=== PATIENT | male | born 1980 | race Caucasian/White ===

== ENCOUNTER 2022-08-15 19:56 | Emergency (ER) | payer BC, SELFPAY ==
[2022-08-15 20:00] VITALS: BP 192/94; PULSE 72; RESP 18; TEMP 35.8; O2SAT 99; BMI 31.6
--- NOTE | 2022-08-15 20:08 | CRLHL7_ITS ---
For Patients: As a result of the Century Cures Act, medical imaging exams and procedure reports are released immediately into your electronic medical record. You may view this report before your referring provider. If you have questions, please contact your health care provider. HISTORY: Left flank/abdominal pain. TECHNIQUE: CT abdomen and pelvis without contrast. COMPARISON: None. FINDINGS: Urinary tract: 4 mm calculus at the left ureterovesical junction (axial series 2, image 138). Mild left hydronephrosis. Fat stranding around the left ureter and kidney. Nonobstructing 6 mm calculus in the lower pole the right kidney. No right ureteral calculi. No hydronephrosis on the right. Abdomen: Liver is unremarkable. Cholelithiasis. Pancreas, spleen, and adrenal glands are unremarkable. No dilated bowel. Appendix is unremarkable. No free fluid. No lymphadenopathy. Abdominal aorta is not dilated. Pelvis: No lymphadenopathy. Musculoskeletal: Multilevel degenerative changes in the thoracic and lumbar spine. Bilateral sacroiliac joint degenerative changes. Lower chest: Unremarkable. IMPRESSION: 1. 4 mm calculus at the left ureterovesical junction. Mild left hydronephrosis. 2. Nonobstructing right renal calculus. 3. Cholelithiasis. Please note that all CT scans at this facility use dose modulation, iterative reconstruction, and/or weight-based dosing when appropriate to reduce radiation dose to as low as reasonably achievable. Dictated by Bhavin Franco MD @ 08/15/2022 9:20:46 PM (Electronically Signed)
--- NOTE | 2022-08-15 20:09 | ED_ITS ---
HPI - General Adult General Chief complaint: Flank Pain Stated complaint: Extreme Abdominal Pain, Left Flank to Front Time Seen by Provider: 08/15/22 20:11 History of Present Illness HPI narrative: This 42-year-old male comes in with a left-sided abdominal pain radiating down some into his groin. This started a couple hours prior to arrival. He is pacing in the room in severe discomfort. He does not have any personal history of kidney stone but states that his father has passed a kidney stone. Prior to this he has been in good health. Related Data Home Medications Medication Instructions Recorded Confirmed ibuprofen 08/15/22 Allergies Allergy/AdvReac Type Severity Reaction Status Date / Time tetracycline Allergy Anaphylaxis Verified 08/15/22 20:03 Review of Systems Status of ROS: Reports: 10 or more systems reviewed and unremarkable except as noted in History and below Narrative: Constitutional: No fevers, no weight gain or loss. Eyes: No discharge. No vision changes. HENT: No congestion, no sore throat, no ear pain. Cardiovascular: No chest pain, no palpitations. Respiratory: No shortness of breath, no wheezes, no cough. Gastrointestinal: No diarrhea. Left-sided abdominal pain and flank pain. Genitourinary: No dysuria, no hematuria. Musculoskeletal: Normal range of motion. Skin: No rashes, no pruritis. Neurological: No dizziness, weakness, sensory change, speech change. Endo/Heme/Allergies: No bruising or bleeding. No polydipsia. Pysch: no suicidality, no anxiety, no insomnia. All other systems reviewed and are negative. Exam Narrative: Exam Narrative: Constitutional: Well-developed, well-nourished, no acute distress. HEENT: Normocephalic, atraumatic. Neck: Normal range of motion. Nontender. Supple. Heart: Regular. No murmurs. Normal rate. Intact distal pulses. Lungs: Clear to auscultation. No chest discomfort. No wheezes, rhonchi, or rales. Abdomen: Normal bowel sounds. Left abdomen pain radiating down into the left groin. No rebound tenderness. Genitalia: Deferred. Back: No midline tenderness. Normal range of motion. Extremities: Normal range of motion. No injury. Skin: Intact. No rash. Warm. No erythema or pallor. Neurologic: No altered sensation. No weakness. Alert and oriented. Psychiatric: No suicidality. No anxiety or depression. No insomnia. Nursing notes and vitals signs are reviewed. Const: Vital Signs, click to edit/add: Vital Signs - 24 hr 08/15/22 20:00 Temperature 96.5 F L Pulse Rate [Left P ulse Oximeter] 72 Respiratory Rate 18 Blood Pressure [Ri ght Upper Arm] 192/94 H Pulse Oximetry 99 Oxygen Delivery Me thod Room Air Course Vital Signs Vital signs: Initial Vital Signs Temperature 96.5 F L 08/15/22 20:00 Temperature Source Temporal Artery Scan 08/15/22 20:00 Pulse Rate 72 08/15/22 20:00 Respiratory Rate 18 08/15/22 20:00 Blood Pressure 192/94 H 08/15/22 20:00 Blood Pressure Mean 126 08/15/22 20:00 Blood Pressure Position Standing 08/15/22 20:00 Pulse Oximetry 99 08/15/22 20:00 Oxygen Delivery Method 08/15/22 20:00 Vital Signs Temperature 96.5 F L 08/15/22 20:00 Pulse Rate 72 08/15/22 20:00 Respiratory Rate 18 08/15/22 20:00 Blood Pressure 192/94 H 08/15/22 20:00 Pulse Oximetry 99 08/15/22 20:00 Oxygen Delivery Method 08/15/22 20:00 Temperature 96.5 F L 08/15/22 20:00 Pulse Rate 72 08/15/22 20:00 Respiratory Rate 18 08/15/22 20:00 Blood Pressure 192/94 H 08/15/22 20:00 Pulse Oximetry 99 08/15/22 20:00 Oxygen Delivery Method 08/15/22 20:00 Medical Decision Making MDM Narrative Medical decision making narrative: This patient presents with symptoms typical of a kidney stone being passed. An IV was established where he received Toradol 30 mg, Dilaudid 0.5 mg, and Zofran [address] scan of the abdomen and pelvis is ordered and returns showing a stone at the left ureterovesical junction. By my assessment it appears to be around 3-4 mm in size. Radiology report is pending. Urinalysis shows microscopic hematuria and no sign of infection. The patient's symptoms were sufficiently managed with these medications. Toward the end of his visit he did receive another dose of Dilaudid. Prescriptions for Toradol, oxycodone, and Zofran are provided. Lab Data Labs: Lab Results 08/15/22 08/15/22 08/15/22 Range/Units 20:20 20:20 20:20 WBC 15.45 H (4.50-11.00) K/uL RBC 5.08 (4.30-5.90) m/uL Hgb 14.9 (13.5-17.5) gm/dL Hct 43.9 (37.0-53.0) % MCV 86 (80-100) fL MCH 29 (26-34) pg MCHC 34 (32-36) gm/dL RDW Coeff of Gene 12.5 (11.5-15.5) % Plt Count 342 (140-440) K/uL Neut % (Auto) 80.9 H (42.0-72.0) % Lymph % (Auto) 12.1 L (20-44) % [place] % (Auto) 5.4 (0.0-11.0) % Eos % (Auto) 1.2 (0.0-7.0) % Baso % (Auto) 0.3 (0.0-3.0) % Neut # (Auto) 12.50 H (1.7-7.0) K/uL Lymph # (Auto) 1.90 (0.90-2.90) K/uL [place] # (Auto) 0.80 (0.00-0.90) K/UL Eos # (Auto) 0.20 (0.00-0.50) K/uL Baso # (Auto) 0.00 (0.00-0.30) K/uL Sodium 138 (135-149) mmol/L Potassium 4.2 (3.6-5.1) mmol/L Chloride 107 (96-114) mmol/L Carbon Dioxide 20 (20-32) mmol/L BUN 18 (5-24) mg/dL Creatinine 1.2 (0.5-1.5) mg/dL Estimated Creat Clear 81.96 Estimated GFR 77 ml/min Glucose 158 H (60-115) mg/dL Calcium 9.1 (8.4-10.6) mg/dL Urine Color Yellow (Yellow) Urine Appearance Clear (Clear) Urine pH 5.5 (5.0-8.5) Ur Specific [place] >= 1.030 (1.000-1.030) Urine Protein Negative (Negative) Urine Glucose (UA) Negative (Negative) Urine Ketones Trace A (Negative) Urine Blood 2+ A (Negative) Urine Nitrite Negative (Negative) Urine Bilirubin Negative (Negative) Urine Urobilinogen 0.2 (0.2-1.0) Ur Leukocyte Esterase Negative (Negative) Urine RBC 2-5 A (0-2) Urine WBC 0-2 (0-5) Ur Squamous Epith Cells None (None-Few) Urine Bacteria None (None) Discharge Plan Discharge Clinical Impression: Calculus, ureteral Patient Disposition: Home w/ Parent or Adult Condition: Stable Additional Instructions: Take medication as needed and indicated. Follow up with MD or return if symptoms are persistent or worsening. Prescriptions: No Action ibuprofen Follow Up/Referrals: Bandar Herron MD [Primary Care Provider] - Stand Alone Forms: [employer] Info Instructions
[2022-08-15] MEDS: KETOROLAC 30 MG/ML inj IVP (20:27)
[2022-08-15] MEDS: ONDANSETRON 2 MG/ML inj 4 MG IVP (20:27)
[2022-08-15 20:30] LABS: Basophils Percent Auto 0.3 % (0.0-3.0); Eosinophils Percent Auto 1.2 % (0.0-7.0); Hematocrit 43.9 % (37.0-53.0); Hemoglobin* 14.9 gm/dL (13.5-17.5); Immature Granulocytes Pct Auto 0.1 %; Lymphocytes Percent Auto 12.1 % (20-44); Mean Corpuscular HGB Conc 34 gm/dL (32-36); Mean Corpuscular Hemoglobin 29 pg (26-34); Mean Corpuscular Volume 86 fL (80-100); Monocytes Percent Auto 5.4 % (0.0-11.0); Neutrophils Percent Auto 80.9 % (42.0-72.0); Platelet Count* 342 K/uL (140-440); RDW Coefficient of Variation % 12.5 % (11.5-15.5); Red Blood Count 5.08 m/uL (4.30-5.90); White Blood Count* 15.45 K/uL (4.50-11.00)
[2022-08-15 20:33] LABS: Appearance Urine Clear (Clear); Bilirubin Urine Negative (Negative); Blood Urine 2+ (Negative); Color Urine Yellow (Yellow); Glucose Urine Negative (Negative); Ketones Urine Trace (Negative); Leukocyte Esterase Urine Negative (Negative); Nitrite Urine Negative (Negative); Protein Urine Negative (Negative); Specific Gravity Urine >= 1.030 (1.000-1.030); Urobilinogen Urine 0.2 (0.2-1.0); pH Urine 5.5 (5.0-8.5)
[2022-08-15 20:36] LABS: Slide Review Reflex No
[2022-08-15 20:45] LABS: Chloride* 107 mmol/L (96-114); Potassium* 4.2 mmol/L (3.6-5.1); Sodium* 138 mmol/L (135-149)
[2022-08-15 20:48] LABS: Blood Urea Nitrogen* 18 mg/dL (5-24); Carbon Dioxide* 20 mmol/L (20-32); Creatinine* 1.2 mg/dL (0.5-1.5); Est. Creatinine Clearance* 81.96; Estimated Glomerular Filt Rate 77 ml/min; Glucose* 158 mg/dL (60-115)
[2022-08-15 20:49] LABS: Calcium* 9.1 mg/dL (8.4-10.6)
[2022-08-15 21:09] LABS: WBC Urine 0-2 (0-5)
[2022-08-15] MEDS: HYDROmorphone 0.5 mg/0.5 ml inj IVP (21:27)
[2022-08-15 21:49] VITALS: PULSE 54; RESP 16
== END 2022-08-15 21:49 | disposition home or self-care (01) ==
PROVIDERS: Emergency Provider Emergency Medicine Emergency Medical Services; PCP Family Medicine
DX: N20.1 Calculus of ureter (principal)
CPT/HCPCS: 36415; 74176; 80048; 81001; 85025; 96374; 96375; 99284; J1170; J1885; J2405

== ENCOUNTER 2023-06-25 11:31 | Emergency (ER) | payer BC, SELFPAY ==
[2023-06-25 11:34] VITALS: BP 129/58; PULSE 77; RESP 18; TEMP 37.7; O2SAT 100; BMI 27.3
--- NOTE | 2023-06-25 11:39 | ED.GENADULT ---
HPI - General Adult General Chief complaint: Headache/Migraine Stated complaint: Loss of vision, headache Time Seen by Provider: 06/25/23 11:38 History of Present Illness HPI narrative: seen by eye doctor yesterday for vision loss x 2 days. exam was normal, was referred to ED today. c/o headache when he coughs. 43-year-old man presenting to the emergency department concern of visual loss. Was contacted by primary care provider who had been contacted by Ophthalmology noting a left-sided visual field loss. This was on exam yesterday I understand. He has a severe left-sided headache particularly when he coughs. No discoordination. No trauma. Has been having some cough and a couple of days ago during a coughing jag at work suddenly had onset of this loss of vision. In later conversation he has been also experiencing over the last couple of weeks, flashes of light in this same area of visual loss. No peripheral loss of sensation or weakness. Does not smoke but has used nicotine in other forms. No chest pain. No shortness of breath. Has been struggling otherwise over the last few months with symptoms related to thyroid disease and currently taking methimazole. Works in [employer] business in [employer]. Sounds like he takes great care and pride in his work. Related Data Home Medications Medication Instructions Recorded Confirmed ibuprofen 08/15/22 methimazole 5 mg tablet 5 mg PO DAILY 06/25/23 06/25/23 metoprolol succinate 25 mg 25 mg PO QPM 06/25/23 06/25/23 tablet,extended release 24 hr omeprazole 20 mg capsule,delayed 20 mg PO DAILY 06/25/23 06/25/23 release Previous Rx's Medication Instructions Recorded aspirin 81 mg tablet,delayed 81 mg PO DAILY #30 tabs 06/25/23 release (Adult Aspirin Regimen) Allergies Allergy/AdvReac Type Severity Reaction Status Date / Time tetracycline Allergy Anaphylaxis Verified 08/15/22 20:03 Review of Systems Status of ROS: Reports: 6 or more systems reviewed and unremarkable except as noted in History and below PFSH PFS Social History Smoking Status: Smoker, status unknown Exam Narrative: Exam Narrative: Pleasant. NAD though winces a little bit intermittently with apparent headache. Moving all extremities without difficulty as well perfused with good strength throughout. No apparent sensory losses. Neck is supple with strong and equal carotid upstroke. Breathing easily lungs appear to be clear. Heart is in a regular rate and rhythm. Cranial nerves 2-12 look to be intact with full ocular movements. There is however demonstrable loss of lateral visual field in the left eye to confrontation. Funduscopic exam looks to have healthy vasculature. Const: Vital Signs, click to edit/add: Vital Signs - 24 hr 06/25/23 11:34 06/25/23 16:07 Temperature 99.9 F H Pulse Rate [Right Pulse Oximeter] 77 88 Respiratory Rate 18 18 Blood Pressure [Ri ght Upper Arm] 129/58 L 125/68 Pulse Oximetry 100 Oxygen Delivery Me thod Room Air Documenting provider has reviewed patient's vital signs: yes Course Vital Signs Vital signs: Initial Vital Signs Temperature 99.9 F H 06/25/23 11:34 Temperature Source Temporal Artery Scan 06/25/23 11:34 Pulse Rate 77 06/25/23 11:34 Respiratory Rate 18 06/25/23 11:34 Blood Pressure 129/58 L 06/25/23 11:34 Blood Pressure Mean 81 06/25/23 11:34 Blood Pressure Position Sitting 06/25/23 11:34 Pulse Oximetry 100 06/25/23 11:34 Oxygen Delivery Method Room Air 06/25/23 11:34 Vital Signs Temperature 99.9 F H 06/25/23 11:34 Pulse Rate 77 06/25/23 11:34 Respiratory Rate 18 06/25/23 11:34 Blood Pressure 129/58 L 06/25/23 11:34 Pulse Oximetry 100 06/25/23 11:34 Oxygen Delivery Method Room Air 06/25/23 11:34 Temperature 99.9 F H 06/25/23 11:34 Pulse Rate 88 06/25/23 16:07 Respiratory Rate 18 06/25/23 16:07 Blood Pressure 125/68 06/25/23 16:07 Pulse Oximetry 100 06/25/23 11:34 Oxygen Delivery Method Room Air 06/25/23 11:34 Medications Administered Medications: Discontinued Medications Generic Name Dose Route Start Last Admin Trade Name Freq PRN Reason Stop Dose Admin Aspirin 325 mg 06/25/23 15:19 06/25/23 15:26 Aspirin Ec 325 Mg Tablet PO 06/25/23 15:20 325 mg DAILY ONE Administration Sodium Chloride 1,000 mls @ 1,000 mls/hr 06/25/23 13:41 06/25/23 15:26 0.9 % Sodium Chloride 1000 Ml IV 06/25/23 14:40 1,000 mls/hr .Q1H ONE Administration Medical Decision Making MDM Narrative Medical decision making narrative: Has already had ophthalmology exam that is noting that there is concern of injury deeper than the eye itself. One would have concern about ischemic event. Evaluate for arrhythmia/dysrhythmia this potential etiology and I am anticipating as it is daytime hours and I am able to get an MRI likely doing a brain MRI and proceeding from there for further evaluation. Discussed this case with Stroke Neuro and they concur with initial evaluation. EKG shows normal sinus rhythm. MRI of the brain-I did review images however radiology over-read as below IMPRESSION: 1. 34 millimeter region of dominant late acute or early subacute infarction within the right medial occipital lobe, with several smaller recent infarcts along the margins. No DWI/FLAIR mismatch. This infarct involves the right [employer] territory. Small amount of petechial hemorrhage or localized thrombus within the deep portion of the infarct bed. No acute parenchymal hemorrhage. 2. No acute ischemia in other vascular territories. Discussed follow-up vascular study with Stroke Neuro and feel that contrasted CT imaging should provide good study. Given L of normal saline IV. Labs with elevated inflammatory markers in particular. ProBNP also elevated at a little over 1000 of unclear significance. CLINICAL HISTORY: Right occipital stroke. TECHNIQUE: CTA neck with contrast bolus tracking. 3D angiographic rendering using maximum intensity projection (MIP) and images permanently archived. COMPARISON: None available. FINDINGS: The great vessels are patent. The common carotid arteries are patent. The proximal ICAs are patent without signficant stenoses by NASCET criteria. The more distal cervical ICAs are patent. The origins of the vertebral arteries are patent. The cervical segments of the vertebral arteries are patent. IMPRESSION: Patent cervical arterial vasculature without hemodynamically significant luminal stenosis. Head -- IMPRESSION: No intracranial proximal large vessel occlusion, flow-limiting luminal stenosis, or cerebral aneurysm. Is recommended for aspirin load and then continuing daily low-dose aspirin. Would monitor also for cardiac arrhythmia over a longer period of time. I wonder if etiology to this CVA is inflammatory condition present in the body with thyroid dysfunction, which is currently being remedied/treated. Case discussed with Mr. Almendarez, his and primary care provider in a conference call. Lab Data Lab results reviewed: Yes I reviewed the patient's lab results Labs: Lab Results 06/25/23 Range/Units 14:00 ESR 32 H (2-15) mm/hr INR 1.18 H (0.91-1.10) APTT 36 H (23-33) Seconds Sodium 132 L (135-149) mmol/L Potassium 4.2 (3.6-5.1) mmol/L Chloride 101 (96-114) mmol/L Carbon Dioxide 24 (20-32) mmol/L Anion Gap 7 (7-15) mEq/L BUN 10 (5-24) mg/dL Creatinine 1.0 (0.5-1.5) mg/dL Estimated Creat Clear 97.33 Estimated GFR 95 ml/min Glucose 121 H (60-115) mg/dL Calcium 8.8 (8.4-10.6) mg/dL C-Reactive Protein 6.0 H (0.5-1.0) mg/dL NT-Pro-B Natriuret Pep 1070 pg/mL ECG Data Attestation: I personally reviewed and interpreted this ECG as follows: (Normal sinus rhythm rate of 77 without acute ischemic changes) Discharge Plan Discharge Clinical Impression: Headache, Occipital stroke Patient Disposition: Home w/ Parent or Adult Condition: Stable Additional Instructions: Please contact [facility] (unless you have another neurologist you would like to consult with) to arrange follow-up appointment. Take copies of your imaging over-read and disc to follow-up appointments. Please contact your Primary Care to arrange a Daniella Patch as soon as possible and wear for 3-4 weeks. This result is then reviewed by cardiology. Would anticipate primary care also arranging for a cardiac echocardiogram; likely trans esophageal. Continue to take 81 mg of aspirin daily. Be re-evaluated for new and focal weakness, worsening deficits, worsening/severe headache. I suppose it is not as though you can not work but would take it a little easy over this next week. Prescriptions: New aspirin [Adult Aspirin Regimen] 81 mg tablet,delayed release (DR/EC) 81 mg PO DAILY Qty: 30 0RF No Action ibuprofen methimazole 5 mg tablet 5 mg PO DAILY omeprazole 20 mg capsule,delayed release(DR/EC) 20 mg PO DAILY metoprolol succinate 25 mg tablet extended release 24 hr 25 mg PO QPM Follow Up/Referrals: Bandar Herron MD [Primary Care Provider] - Stand Alone Forms: [employer] Info Instructions
--- NOTE | 2023-06-25 12:08 | CRLHL7_ITS ---
For Patients: As a result of the Century Cures Act, medical imaging exams and procedure reports are released immediately into your electronic medical record. You may view this report before your referring provider. If you have questions, please contact your health care provider. INDICATION: Visual field defect. TECHNIQUE: Brain MRI without contrast. The following sequences were obtained: Sagittal T1 weighted sequence. DWI and ADC mapping sequences. Axial FLAIR and MAYI T2 weighted sequences. Susceptibility or GRE sequence. COMPARISON: None. FINDINGS: There is a region of transcortical diffusion restriction and FLAIR hyperintensity within the right medial occipital lobe, compatible with a completed late acute to early subacute infarct. Dominant infarct bed measures approximately 24 x 34 millimeters in axial plane. A few smaller slightly separate infarcts are present within the right occipital lobe and inferior/medial parietal lobe as well. These infarcts all involve the right [employer] territory. No recent ischemia elsewhere within the brain. Curvilinear susceptibility artifact within the right deep occipital region may reflect thrombus or small amount of petechial hemorrhage. No acute or chronic intracranial hemorrhage elsewhere. No mass effect or herniation. No hydrocephalus or extra-axial collections. The pituitary gland, parasellar structures and optic chiasm are normal. Posterior fossa is normal. All the major intracranial vascular structures demonstrate normal flow-related signal. The orbital contents are normal. No calvarial or skull base marrow replacing process. No obstructive sinus disease. No extracranial soft tissue findings. IMPRESSION: 1. 34 millimeter region of dominant late acute or early subacute infarction within the right medial occipital lobe, with several smaller recent infarcts along the margins. No DWI/FLAIR mismatch. This infarct involves the right [employer] territory. Small amount of petechial hemorrhage or localized thrombus within the deep portion of the infarct bed. No acute parenchymal hemorrhage. 2. No acute ischemia in other vascular territories. Dictated by Michi Knutson MD @ 06/25/2023 1:16:06 PM (Electronically Signed)
--- NOTE | 2023-06-25 13:43 | CRLHL7_ITS ---
For Patients: As a result of the Century Cures Act, medical imaging exams and procedure reports are released immediately into your electronic medical record. You may view this report before your referring provider. If you have questions, please contact your health care provider. CLINICAL HISTORY: Right occipital stroke. TECHNIQUE: CTA head with contrast bolus tracking. 3D angiographic rendering using maximum intensity projection (MIP) and images permanently archived. COMPARISON: None available. FINDINGS: The petrous, cavernous, and supraclinoid segments of the internal carotid arteries are patent. The anterior and middle cerebral arteries are patent. The anterior communicating artery is visualized and is within normal limits. The intracranial vertebral arteries, basilar trunk, and posterior cerebral arteries are patent. No intracranial proximal large vessel occlusion or flow-limiting luminal stenosis. No evidence of cerebral aneurysm. No findings to suggest an arterial-venous shunting lesion. The major dural venous sinuses and deep venous system are patent. IMPRESSION: No intracranial proximal large vessel occlusion, flow-limiting luminal stenosis, or cerebral aneurysm. Please note that all CT scans at this facility use dose modulation, iterative reconstruction, and/or weight-based dosing when appropriate to reduce radiation dose to as low as reasonably achievable. Dictated by Richard Pelletier MD @ 06/25/2023 2:32:43 PM (Electronically Signed)
--- NOTE | 2023-06-25 13:43 | CRLHL7_ITS ---
For Patients: As a result of the Century Cures Act, medical imaging exams and procedure reports are released immediately into your electronic medical record. You may view this report before your referring provider. If you have questions, please contact your health care provider. CLINICAL HISTORY: Right occipital stroke. TECHNIQUE: CTA neck with contrast bolus tracking. 3D angiographic rendering using maximum intensity projection (MIP) and images permanently archived. COMPARISON: None available. FINDINGS: The great vessels are patent. The common carotid arteries are patent. The proximal ICAs are patent without signficant stenoses by NASCET criteria. The more distal cervical ICAs are patent. The origins of the vertebral arteries are patent. The cervical segments of the vertebral arteries are patent. IMPRESSION: Patent cervical arterial vasculature without hemodynamically significant luminal stenosis. Please note that all CT scans at this facility use dose modulation, iterative reconstruction, and/or weight-based dosing when appropriate to reduce radiation dose to as low as reasonably achievable. Dictated by Richard Pelletier MD @ 06/25/2023 2:31:20 PM (Electronically Signed)
[2023-06-25 14:40] LABS: Chloride* 101 mmol/L (96-114); Sodium* 132 mmol/L (135-149)
[2023-06-25 14:41] LABS: Potassium* 4.2 mmol/L (3.6-5.1)
[2023-06-25 14:43] LABS: Est. Creatinine Clearance* 97.33; Estimated Glomerular Filt Rate 95 ml/min
[2023-06-25 14:44] LABS: Anion Gap 7 mEq/L (7-15); Blood Urea Nitrogen* 10 mg/dL (5-24); Calcium* 8.8 mg/dL (8.4-10.6); Carbon Dioxide* 24 mmol/L (20-32); Glucose* 121 mg/dL (60-115)
[2023-06-25 14:59] LABS: INR 1.18 (0.91-1.10); Prothrombin Time 15.8 Seconds
[2023-06-25 15:00] LABS: NT Pro B Type NatriureticPept* 1070 pg/mL; Partial Thromboplastin Time* 36 Seconds (23-33)
[2023-06-25 15:16] LABS: Erythrocyte SedimentationRate* 32 mm/hr (2-15)
[2023-06-25] MEDS: ASPIRIN EC 325 MG TABLET PO (15:26)
[2023-06-25] MEDS: 0.9 % SODIUM CHLORIDE 1000 ml 1,000 ML IV (15:26)
[2023-06-25 16:07] VITALS: BP 125/68; PULSE 88; RESP 18
== END 2023-06-25 16:08 | disposition home or self-care (01) ==
PROVIDERS: Emergency Provider Family Medicine; PCP Family Medicine
DX: R51.9 Headache, unspecified (principal); I63.532 Cerebral infarction due to unspecified occlusion or stenosis of left posterior cerebral artery
CPT/HCPCS: 36415; 70496; 70498; 70551; 80048; 83880; 85610; 85651; 85730; 86140; 93005; 99284; 99285; A9270; J7030; Q9967

== ENCOUNTER 2023-07-01 14:15 | Outpatient (RCR) | payer BC, SELFPAY | END 2023-10-27 13:40 | disposition home or self-care (01) | PROVIDERS: PCP Family Medicine; Visit Provider Family Medicine | DX: S86.812A Strain of other muscle(s) and tendon(s) at lower leg level, left leg, initial encounter (principal); R26.2 Difficulty in walking, not elsewhere classified; M79.662 Pain in left lower leg; M25.672 Stiffness of left ankle, not elsewhere classified; Z51.89 Encounter for other specified aftercare | CPT/HCPCS: 97110; 97140; 97162 ==